=== PATIENT | female | born 1975 | race Two or more races ===

== ENCOUNTER 2020-02-17 05:46 | Inpatient (IN) | payer OTHER ==
[~2020-02-17] VITALS: Ht 162.6 cm; Wt 82.3 kg
[2020-02-17 06:18] VITALS: BP 129/73
[2020-02-17 06:49] LABS: AMPHETAMINE SCREEN, URINE Negative (Negative); BARBITURATE SCREEN, URINE Negative (Negative); BENZODIAZEPINE SCREEN, URINE Negative (Negative); CANNABINOID SCREEN, URINE Negative (Negative); COCAINE SCREEN, URINE Negative (Negative); METHADONE SCREEN, URINE Negative (Negative); OPIATE SCREEN, URINE Negative (Negative)
[2020-02-17 07:12] LABS: MICROSCOPIC INDICATED
[2020-02-17] MEDS ORDERED: OXYTOCIN 30U/ 0.9% NaCL 500ML 500 ML IV ONE (08:00)
[2020-02-17] MEDS ORDERED: MISOPROSTOL 25 MCG TABLET VG PRN (08:00)
[2020-02-17] MEDS ORDERED: OXYTOCIN 30U/ 0.9% NaCL 500ML 500 ML IV PRN ×2 (08:00)
[2020-02-17] MEDS ORDERED: ONDANSETRON 2MG/ML, 2ML IVPush PRN ×2 (08:00→21:30)
[2020-02-17] MEDS ORDERED: TERBUTALINE 1 MG/ML, 1ML SQ PRN (08:00)
[2020-02-17] MEDS ORDERED: FENTANYL PF 100 MCG/2ML IV PRN (08:00)
[2020-02-17] MEDS ORDERED: TERBUTALINE 1 MG/ML, 1ML IVPush PRN (08:00)
[2020-02-17] MEDS: LACTATED RINGERS 1,000 ML IV SCH ×4 (08:15→21:04)
[2020-02-17] MEDS ORDERED: LACTATED RINGERS 1,000 ML IVBOLUS ONE (08:30)
[2020-02-17 08:37] LABS: BASOPHILS % (AUTO) 1 % (0-1); EOSINOPHILS % (AUTO) 3 % (1-7); LYMPHOCYTES % (AUTO) 21 % (22-44); MD NO; MEAN CORPUSCULAR HEMOGLOBIN 34.2 pg (27.0-34.8); MEAN CORPUSCULAR HGB CONC 33.8 g/dL (32.4-35.8); MEAN PLATELET VOLUME 7.9 fL (7.4-10.4); MONOCYTES % (AUTO) 5 % (2-9); NEUTROPHILS % (AUTO) 71 % (42-75); PLATELET COUNT 186 x10^3/uL (130-400); RED BLOOD COUNT 3.89 x10^6/uL (3.82-5.3); RED CELL DISTRIBUTION WIDTH 14.3 % (9.6-15.2)
[2020-02-17] MEDS ORDERED: OXYTOCIN 30U/ 0.9% NaCL 500ML 500 ML ONE ×2 (09:03→18:21)
[2020-02-17] MEDS ORDERED: NEWBORN KIT ONE (09:03)
[2020-02-17] MEDS ORDERED: MISOPROSTOL 200 MCG TABLET ONE (09:03)
[2020-02-17] MEDS ORDERED: LIDOCAINE 1%, 20ML ONE (09:03)
[2020-02-17] MEDS ORDERED: FENTANYL PF 100 MCG/2ML ONE ×2 (10:34→18:14)
[2020-02-17] MEDS: FENTANYL PF 100 MCG/2ML IVPush PRN ×2 (10:39→18:18)
[2020-02-17] MEDS ORDERED: MISOPROSTOL 25 MCG TABLET ONE (13:03)
[2020-02-17] MEDS ORDERED: PENICILLIN GK 5,000,000 UNITS in DEXTROSE 5% 100 ML IVPB ONE (20:00)
[2020-02-17] MEDS ORDERED: D5%-LACTATED RINGERS 1,000 ML IV SCH (20:30)
[2020-02-17] MEDS ORDERED: BUPIVACAINE 0.25% ONE (20:45)
[2020-02-17] MEDS ORDERED: FENTANYL/BUPIV./NS/PF 250 ML EPIDCONT ONE (20:45)
[2020-02-17] MEDS ORDERED: LACTATED RINGERS 1,000 ML IVBOLUS PRN (21:30)
[2020-02-17] MEDS ORDERED: EPHEDRINE 50 MG/ML, 1ML IVPush PRN (21:30)
[2020-02-17] MEDS ORDERED: NALOXONE 0.4 MG/ML, 1ML IVPush PRN (21:30)
[2020-02-17] MEDS ORDERED: FENTANYL/BUPIV./NS/PF 250 ML EPIDCONT SCH (21:30)
[2020-02-17] MEDS ORDERED: DIPHENHYDRAMINE 50 MG/ML, 1ML IVPush PRN (21:30)
[2020-02-17] MEDS ORDERED: LACTATED RINGERS 1,000 ML IV SCH (21:30)
[2020-02-17] MEDS: PENICILLIN GK 2,500,000 UNITS in DEXTROSE 5% 100 ML IVPB SCH (23:41)
[2020-02-18] MEDS: PENICILLIN GK 2,500,000 UNITS in DEXTROSE 5% 100 ML IVPB SCH ×3 (03:37→11:21)
[2020-02-18] MEDS ORDERED: OXYcodone IR 5MG TABLET PO PRN (12:00)
[2020-02-18] MEDS ORDERED: OXYcodone/APAP 5/325MG TABLET PO PRN (12:00)
[2020-02-18] MEDS ORDERED: ONDANSETRON 2MG/ML, 2ML IV PRN (12:00)
[2020-02-18] MEDS ORDERED: MISOPROSTOL 200 MCG TABLET PR PRN (12:00)
[2020-02-18] MEDS ORDERED: SIMETHICONE 80 MG CHEW TAB PO PRN (12:00)
[2020-02-18] MEDS ORDERED: DOCUSATE 100 MG CAPSULE PO PRN (12:00)
[2020-02-18] MEDS: OXYTOCIN 30U/ 0.9% NaCL 500ML 500 ML IV SCH ×2 (12:25→13:42)
[2020-02-18] MEDS ORDERED: IBUPROFEN 600 MG TABLET ONE (13:39)
[2020-02-18] MEDS: IBUPROFEN 600 MG TABLET PO PRN ×2 (13:40→19:58)
[2020-02-18 14:20] VITALS: BP 137/89
[2020-02-18 18:00] VITALS: BP 129/86
[2020-02-18 20:12] VITALS: BP 125/85
[2020-02-18 20:32] LABS: BASOPHILS % (AUTO) 0 % (0-1); EOSINOPHILS % (AUTO) 1 % (1-7); LYMPHOCYTES % (AUTO) 13 % (22-44); MEAN CORPUSCULAR HEMOGLOBIN 34.8 pg (27.0-34.8); MEAN CORPUSCULAR HGB CONC 34.4 g/dL (32.4-35.8); MEAN PLATELET VOLUME 8.2 fL (7.4-10.4); MONOCYTES % (AUTO) 5 % (2-9); NEUTROPHILS % (AUTO) 81 % (42-75); PLATELET COUNT 174 x10^3/uL (130-400); RED BLOOD COUNT 3.18 x10^6/uL (3.82-5.3); RED CELL DISTRIBUTION WIDTH 14.2 % (9.6-15.2)
[2020-02-18 20:34] LABS: MD NO
[2020-02-19 00:16] VITALS: BP 137/81
[2020-02-19] MEDS: IBUPROFEN 600 MG TABLET PO PRN (01:58)
[2020-02-19 04:08] VITALS: BP 132/79
[2020-02-19 07:45] VITALS: BP 132/83
[2020-02-19] MEDS: OXYTOCIN 30U/ 0.9% NaCL 500ML 500 ML IV SCH (08:00)
[2020-02-19] MEDS ORDERED: PRENATAL VIT/IRON/FA 1 EACH TABLET PO SCH (09:00)
[2020-02-19] MEDS ORDERED: IBUP-1222 PO (11:43)
[2020-02-19] MEDS ORDERED: DIPH,PERTUSS(ACELL),TET VAC/PF NC IM-VACC ONE ×2 (14:45→15:00)
== END 2020-02-19 17:00 | disposition home or self-care (01) | DRG 807 ==
LOC: LDOP 05:46 → LDIP 07:43 → 2NW 02-18 14:04
PROVIDERS: ADMIT Obstetrics & Gynecology; ATTEND Obstetrics & Gynecology
PROC: 3E033VJ Introduction of Other Hormone into Peripheral Vein, Percutaneous Approach (ICD-10-PCS; 2020-02-17)
PROC: 0KQM0ZZ Repair Perineum Muscle, Open Approach (ICD-10-PCS; principal; 2020-02-18)
PROC: 10E0XZZ Delivery of Products of Conception, External Approach (ICD-10-PCS; 2020-02-18)
DX: O70.1 Second degree perineal laceration during delivery (principal); Z37.0 Single live birth; Z3A.39 39 weeks gestation of pregnancy; Z91.19 Patient's noncompliance with other medical treatment and regimen; Z20.828 Contact with and (suspected) exposure to other viral communicable diseases
CPT/HCPCS: 36415; J7121; 80307; 81001; 82962; 85025; 86592; 86850; 86900; 87081; 87086; 87635; 90715; G0378; J2540; J3010; J2590; J7120